=== PATIENT | female | born 2000 | race Caucasian/White ===

== ENCOUNTER 2018-08-31 12:55 | Emergency (ER) | payer OTHER ==
[~2018-08-31] VITALS: Wt 73.0 kg
[2018-08-31 12:57] VITALS: BP 132/71; PULSE 79; RESP 18
--- NOTE | 2018-08-31 15:24 | ERD ---
ER Documentation Chief Complaint Chief Complaint VAG PAIN AND SWELLING X 3 DAYS HPI 18-year-old female, presents to the emergency department, complaining of vaginal pain and swelling for 3 days. Denies fevers, no chills, no abdominal pain ROS All systems reviewed and are negative except as per history of present illness. Medications Home Meds No Active Prescriptions or Reported Meds Allergies Allergies: Coded Allergies: No Known Allergy (Unverified , 10/13/12) PMhx/Soc Hx Alcohol Use: No Hx Substance Use: No Hx Tobacco Use: No Physical Exam Vitals Vital Signs Date Temp Pulse Resp B/P (MAP) Pulse Ox O2 O2 Flow FiO2 Time Delivery Rate 08/31/18 98.9 79 18 132/71 99 12:57 (91) Physical Exam Const: No acute distress Head: Atraumatic Eyes: Normal Conjunctiva ENT: Normal External Ears, Nose and Mouth. Neck: Full range of motion. No meningismus. Resp: Clear to auscultation bilaterally Cardio: Regular rate and rhythm, no murmurs Abd: Soft, non tender, non distended. Normal bowel sounds Skin: No petechiae or rashes Back: No midline or flank tenderness Ext: No cyanosis, or edema Neur: Awake and alert Psych: Normal Mood and Affect Departure Diagnosis: Primary Impression: Abscess of labia majora Condition: Stable Additional Instructions: Thank you very much for allowing us to participate in your care. Your health and safety is our top priority at [facility]. Call your primary care doctor TOMORROW for an appointment during the next 2-4 days and bring all the information and medications prescribed. Have prescriptions filled and follow precisely the directions on the label. If the symptoms get worse and your provider is unavailable, return to the Emergency Department immediately. DAGOBERTO LO MD Aug 31, 2018 15:24
[2018-08-31] MEDS ORDERED: IBUP-1561 PO (15:42)
[2018-08-31] MEDS ORDERED: CEPH-443 PO (15:44)
[2018-08-31] MEDS ORDERED: SULF1TAB31 PO (15:44)
== END 2018-08-31 16:30 | disposition home or self-care (01) ==
LOC: FTE 12:55
DX: N76.4 Abscess of vulva (principal)
CPT/HCPCS: 99283